=== PATIENT | female | born 1985 | race African-American/Black ===

== ENCOUNTER 2018-09-17 02:31 | Emergency (ER) | payer OTHER ==
[2018-09-17 03:48] VITALS: TEMP 98.1; BMI 36.4
--- NOTE | 2018-09-17 04:11 | PDOC ---
*Physical Exam - Vital Signs Last Vital Signs Temp Pulse Resp BP Pulse Ox 98.1 F 77 16 103/69 100 09/17/18 02:31 09/17/18 02:31 09/17/18 02:31 09/17/18 02:31 09/17/18 02:31 ED Treatment Course - LABORATORY CBC & Chemistry Diagram: 09/17/18 04:45 09/17/18 04:45 Medical Decision Making - Medical Decision Making 09/17/18 04:10 Patient seen by the advanced practice provider under my direct supervision. Ancillary testing reviewed as necessary. I agree with plan as outlined by the advanced practice provider. *DC/Admit/Observation/Transfer Diagnosis at time of Disposition: Vaginal bleeding - Discharge Dispostion Condition at time of disposition: Fair - Referrals Referrals: Live Cortes [Primary Care Provider] - - Patient Instructions - Post Discharge Activity
--- NOTE | 2018-09-17 04:23 | PDOC ---
History of Present Illness - General Chief Complaint: Vaginal Bleeding Stated Complaint: 14 WEEKS BLEEDING Time Seen by Provider: 09/17/18 04:08 History Source: Patient - History of Present Illness Initial Comments: 09/17/18 06:30 32-year-old female 14 weeks confirmed IUP complaining of vaginal bleeding last night when she woke up out of bed. Patient noted a large clot in the toilet. Denies cramping or pain. Patient reports that she has no urinary symptoms. systems engineering manager: Dr. Hall [facility] 0 Past History - Past Medical History Allergies/Adverse Reactions: Allergies Allergy/AdvReac Type Severity Reaction Status Date / Time No Known Allergies Allergy Verified 09/17/18 03:48 Home Medications: Ambulatory Orders NK [No Known Home Medication] 09/17/18 - Suicide/Smoking/Psychosocial Hx Smoking History: Never smoked Have you smoked in the past 12 months: No Information on smoking cessation initiated: No Hx Alcohol Use: No Drug/Substance Use Hx: No Review of Systems - Review of Systems Able to Perform ROS?: Yes Is the patient limited Mexican proficient: No Constitutional: No: Symptoms Reported, See HPI, Chills, Diaphoresis, Fever, Loss of Appetite, Malaise, Night Sweats, Weakness, Weight Stable, Unintentional Wgt. Loss, Unexplained wgt Loss, Other HEENTM: No: Symptoms Reported, See HPI, Eye Pain, Blurred Vision, Tearing, Recent change in vision, Double Vision, Cataracts, Ear Pain, Ocular Prothesis, Ear Discharge, Nose Pain, Nose Congestion, Tinnitus, Nose Bleeding, Hearing Loss , Throat Pain, Throat Swelling, Mouth Pain, Dental Problems, Difficulty Swallowing, Mouth Swelling, Other ABD/GI: Yes: Nausea : Yes: Other (Vaginal bleeding) *Physical Exam - Vital Signs Last Vital Signs Temp Pulse Resp BP Pulse Ox 98.1 F 77 16 103/69 100 09/17/18 02:31 09/17/18 02:31 09/17/18 02:31 09/17/18 02:31 09/17/18 02:31 - Physical Exam General Appearance: Yes: Appropriately Dressed Respiratory/Chest: positive: Lungs Clear, Normal Breath Sounds Female Pelvic Exam: positive: other (vaginal bleeding and clots in vault) Gastrointestinal/Abdominal: positive: Normal Bowel Sounds. negative: Tender ED Treatment Course - LABORATORY CBC & Chemistry Diagram: 09/17/18 04:45 09/17/18 04:45 Progress Note - Progress Note Progress Note: A: vaginal bleeding in P: cbc cmp TVUS beta hcg type & screen Medical Decision Making - Medical Decision Making 09/17/18 06:57 patient is pending TVUS, UA. patient reports minimal vaginal bleeding at this time. patient signed out to Eugenie SILVA 09/17/18 06:58 *DC/Admit/Observation/Transfer Diagnosis at time of Disposition: Vaginal bleeding, Placenta previa - Discharge Dispostion Disposition: HOME Condition at time of disposition: Improved - Referrals Referrals: Live Cortes [Primary Care Provider] - - Patient Instructions Printed Discharge Instructions: Placenta Previa Additional Instructions: You have a condition called placenta previa which is when part of the placenta covers the cervical opening. In a lot of women, this condition usually clears on its own, but you will need close follow-up with your [facility]. We spoke to Dr. Hall today who wants you to call her office today to make a sooner appointment next In the meantime, if symptoms worsen, please return to the ER - Post Discharge Activity
[2018-09-17 05:49] LABS: BASO % 0.2 % (0-2.0); EOS % 0.8 % (0-4.5); HEMATOCRIT 32.6 % (32.4-45.2); HEMOGLOBIN 11.3 GM/dL (10.7-15.3); LYMPH % 19.5 % (8-40); MCH 30.3 pg (25.7-33.7); MCHC 34.5 g/dl (32.0-36.0); MEAN CELL VOLUME 87.7 fl (80-96); MEAN PLT VOLUME 9.2 fl (7.5-11.1); MONO % 7.1 % (3.8-10.2); NEUT % 72.4 % (42.8-82.8); PLATELET COUNT 281 K/MM3 (134-434); RBC 3.72 M/mm3 (3.60-5.2); RDW 13.2 % (11.6-15.6); WHITE BLOOD COUNT 8.6 K/mm3 (4.0-10.0)
[2018-09-17 06:43] LABS: BLOOD UREA NITROGEN 14 mg/dL (7-18); CREATININE 0.5 mg/dL (0.55-1.3); GLUCOSE,RANDOM 83 mg/dL (74-106)
[2018-09-17 06:44] LABS: ALBUMIN 3.2 g/dl (3.4-5.0); ALK PHOS 64 U/L (45-117); ANION GAP 8 MMOL/L (8-16); BILIRUBIN,TOTAL 0.2 mg/dL (0.2-1); CALCIUM 9.1 mg/dL (8.5-10.1); CHLORIDE 103 mmol/L (98-107); CO2 24 mmol/L (21-32); POTASSIUM 4.1 mmol/L (3.5-5.1); SGOT/AST 15 U/L (15-37); SGPT/ALT 23 U/L (13-61); SODIUM 135 mmol/L (136-145); TOT PROT 7.2 g/dl (6.4-8.2)
--- NOTE | 2018-09-17 07:26 | PDOC ---
*Physical Exam - Vital Signs Last Vital Signs Temp Pulse Resp BP Pulse Ox 98.1 F 77 16 103/69 100 09/17/18 02:31 09/17/18 02:31 09/17/18 02:31 09/17/18 02:31 09/17/18 02:31 - Physical Exam General Appearance: Yes: Appropriately Dressed. No: Apparent Distress HEENT: positive: Normal Voice Neck: positive: Supple Respiratory/Chest: negative: Respiratory Distress Integumentary: positive: Dry, Warm Neurologic: positive: Fully Oriented, Alert, Normal Mood/Affect ED Treatment Course - LABORATORY CBC & Chemistry Diagram: 09/17/18 04:45 09/17/18 04:45 - ADDITIONAL ORDERS Additional order review: Laboratory Results 09/17/18 09/17/18 04:45 04:45 Sodium 135 L Potassium 4.1 Chloride 103 Carbon Dioxide 24 Anion Gap 8 BUN 14 Creatinine 0.5 L Creat Clearance w eGFR 141.24 Random Glucose 83 Calcium 9.1 Total Bilirubin 0.2 AST 15 ALT 23 Alkaline Phosphatase 64 Total Protein 7.2 Albumin 3.2 L Beta HCG, Quant 29616.9 Blood Type A POSITIVE Antibody Screen Negative 09/17/18 04:45 RBC 3.72 MCV 87.7 MCHC 34.5 RDW 13.2 MPV 9.2 Neutrophils % 72.4 Lymphocytes % 19.5 Monocytes % 7.1 Eosinophils % 0.8 Basophils % 0.2 Medical Decision Making - Medical Decision Making 09/17/18 07:25 Pt signed out to me at 7 AM Pt is a 32-year-old female, 3, P2, approximately 14 weeks , here with vaginal bleed, including clots. Has had documented IUP with Dr. Hall per prior team. Known to be Rh+. Stable here with eta >49K. UA and US pending 09/17/18 07:26 09/17/18 10:30 ~15 ww/ FHR on US. Inferior margin of placenta overlying internal Os. Normal jeremy cervix. Pt states she passed 1 large clot earlier and that vag bleed has since sig improved. Will contact pt's MACHINE ASSISTANT, Dr Hall 09/17/18 10:55 09/17/18 10:56 Dr Hall made aware of placenta previa on ultrasound. States patient can follow-up call office today to make a sooner appointment 09/17/18 10:56 *DC/Admit/Observation/Transfer Diagnosis at time of Disposition: Vaginal bleeding Placenta previa Qualifiers: Trimester: second trimester Qualified Code(s): O44.02 - Complete placenta previa NOS or without hemorrhage, second trimester - Discharge Dispostion Disposition: HOME Condition at time of disposition: Improved - Referrals Referrals: Live Cortes [Primary Care Provider] - - Patient Instructions Printed Discharge Instructions: Placenta Previa Additional Instructions: You have a condition called placenta previa which is when part of the placenta covers the cervical opening. In a lot of women, this condition usually clears on its own, but you will need close follow-up with your MACHINE ASSISTANT. We spoke to Dr. Hall today who wants you to call her office today to make a sooner appointment next In the meantime, if symptoms worsen, please return to the ER - Post Discharge Activity
[2018-09-17 08:21] LABS: EPI CELLS 0.6 /HPF (0-5/HPF); PH,URINE 5.5 (5.0-8.0); URINE APPEARANCE CLEAR; URINE BACTERIA 1.2 /hpf (NEGATIVE); URINE BILIRUBIN NEGATIVE (NEGATIVE); URINE CASTS 2 /lpf (0-8); URINE COLOR YELLOW; URINE GLUCOSE (UA) NEGATIVE (NEGATIVE); URINE KETONE NEGATIVE (NEGATIVE); URINE LEUK ESTERASE NEGATIVE (NEGATIVE); URINE NITRITE NEGATIVE (NEGATIVE); URINE PROTEIN NEGATIVE (NEGATIVE); URINE RBC 291 /hpf (0-4); URINE UROBILINOGEN 0.2 mg/dL (0.2-1.0); URINE WBC 2 /hpf (0-5)
[2018-09-17 11:54] VITALS: BP 110/65; PULSE 70
== END 2018-09-17 11:55 | disposition home or self-care (01) ==
LOC: JER 02:31
DX: O26.891 Other specified pregnancy related conditions, first trimester (principal); Z3A.14 14 weeks gestation of pregnancy; O44.01 Complete placenta previa NOS or without hemorrhage, first trimester
CPT/HCPCS: 36415; 76815; 76817-TC; 80053; 81003; 84702; 85025; 86850; 86900; 86901; 87086; 99282-25

== ENCOUNTER 2018-09-24 07:35 | Emergency (ER) | payer OTHER ==
[2018-09-24 07:51] VITALS: TEMP 97.7; BMI 36.7
[2018-09-24] MEDS ORDERED: ACETAMINOPHEN INJECTION 100 ML IVPB ONE (08:29)
[2018-09-24] MEDS ORDERED: SODIUM CHLORIDE 1,000 ML IV STA ×2 (08:34→10:34)
[2018-09-24] MEDS ORDERED: ACETAMINOPHEN 1000 MG/100 ML VIAL (NON FORMULARY) IVPB ONE (08:34)
--- NOTE | 2018-09-24 08:34 | PDOC ---
History of Present Illness - General History Source: Patient Exam Limitations: No Limitations - History of Present Illness Travel History: No Initial Comments: 09/24/18 08:06 33-year-old female with recent diagnosis of placenta previa last week 1 seen here for vaginal bleeding at 15 weeks. Patient states for the past 2 days has had abdominal pressure now has increased to every 3 minutes since last evening along with spotting since yesterday. Patient denies back pain, nausea but does complain of dizziness. Patient is followed by Dr. Hall who saw patient in the office for the same symptoms and had an ultrasound done which showed a single live intrauterine with a good heart rate as per patient. Patient also states had been told that her cervix was closed. Patient has no other complaints at this time including fever, chills or headache. Timing/Duration: reports: getting worse Quality: reports: moderate, cramping Abdominal Pain Onset Location: reports: suprapubic Pain Radiation: reports: no radiation Activities at Onset: reports: none Aggravating Factors: improves with: None Alleviating Factors: improves with: None <Veronica Jenkins - Last Filed: 09/24/18 13:11> <Alivia Hampton - Last Filed: 09/24/18 13:33> - General Chief Complaint: ,Possible Stated Complaint: 15 WKS PREG,PAIN Time Seen by Provider: 09/24/18 07:56 Past History - Travel Traveled outside of the country in the last 30 days: No Close contact w/someone who was outside of country & ill: No - Past Medical History COPD: No Kidney Stones: Yes (LITHOTRIPSY) - Surgical History Cholecystectomy: Yes - Reproductive History (#): 3 Para: 2 Polycystic Ovaries: No Therapeutic (s) & number: No Tubal Ligation: No - Immunization History Td Vaccination: Yes TDAP Vaccination: Yes Immunization Up to Date: Yes - Suicide/Smoking/Psychosocial Hx Smoking History: Never smoked Have you smoked in the past 12 months: No Hx Alcohol Use: No Drug/Substance Use Hx: No Patient Lives Alone: No Lives with/in: children <Veronica Jenkins - Last Filed: 09/24/18 13:11> <Alivia Hampton - Last Filed: 09/24/18 13:33> - Past Medical History Allergies/Adverse Reactions: Allergies Allergy/AdvReac Type Severity Reaction Status Date / Time No Known Allergies Allergy Verified 09/24/18 07:41 Home Medications: Ambulatory Orders Doxycycline Hyclate 100 mg PO BID #10 tablet 09/24/18 Methylergonovine Maleate [Methergine] 0.2 mg PO TID #9 tablet 09/24/18 Review of Systems - Review of Systems Able to Perform ROS?: No Is the patient limited Pashto proficient: No Constitutional: No: Symptoms Reported HEENTM: No: Symptoms Reported Respiratory: No: Symptoms reported Cardiac (ROS): No: Symptoms Reported ABD/GI: Yes: Abdominal cramping : Yes: Discharge (vag bleeding) Musculoskeletal: No: Symptoms Reported Integumentary: No: Symptoms Reported Neurological: No: Symptoms reported <Veronica Jenkins - Last Filed: 09/24/18 13:11> *Physical Exam - Vital Signs Last Vital Signs Temp Pulse Resp BP Pulse Ox 97.7 F 91 H 18 102/60 100 09/24/18 07:43 09/24/18 07:43 09/24/18 07:43 09/24/18 07:43 09/24/18 07:43 - Physical Exam General Appearance: Yes: Nourished, Appropriately Dressed HEENT: negative: Pale Conjunctivae Respiratory/Chest: positive: Lungs Clear, Normal Breath Sounds. negative: Respiratory Distress, Accessory Muscle Use Female Pelvic Exam: positive: cervical os closed, vaginal bleeding (dark red blood in vault in mod amt) Gastrointestinal/Abdominal: positive: Soft, Tenderness (midsuprapubic) Musculoskeletal: negative: Normal Inspection Integumentary: positive: Normal Color, Warm, Moist Neurologic: positive: Motor Strength 5/5 (ambulatory) <Veronica Jenkins - Last Filed: 09/24/18 13:11> - Vital Signs Last Vital Signs Temp Pulse Resp BP Pulse Ox 97.7 F 91 H 18 102/60 100 09/24/18 07:43 09/24/18 07:43 09/24/18 07:43 09/24/18 07:43 09/24/18 07:55 <Alivia Hampton - Last Filed: 09/24/18 13:33> ED Treatment Course - LABORATORY CBC & Chemistry Diagram: 09/24/18 08:10 09/24/18 08:10 - RADIOLOGY Radiology Studies Ordered: Category Date Time Status US(SINGLE) [US] Stat Ultrasound 09/24/18 07:57 Ordered <Veronica Jenkins - Last Filed: 09/24/18 13:11> - LABORATORY CBC & Chemistry Diagram: 09/24/18 08:10 09/24/18 08:10 - ADDITIONAL ORDERS Additional order review: Laboratory Results 09/24/18 09/24/18 08:35 08:10 PT with INR 13.00 INR 1.10 H Sodium 137 Potassium 3.6 Chloride 105 Carbon Dioxide 22 Anion Gap 10 BUN 7 Creatinine 0.6 Creat Clearance w eGFR 113.77 Random Glucose 111 H Calcium 9.0 Magnesium 1.5 L Total Bilirubin 0.4 AST 22 ALT 23 Alkaline Phosphatase 88 Total Protein 7.3 Albumin 3.1 L Lipase 216 09/24/18 08:10 RBC 3.69 MCV 87.2 MCHC 33.9 RDW 13.1 MPV 9.1 Neutrophils % 84.9 H Lymphocytes % 7.7 L D Monocytes % 6.8 Eosinophils % 0.3 Basophils % 0.3 - Medications Given in the ED: ED Medications Discontinued Medications Generic Name Dose Route Start Last Admin Trade Name Freq PRN Reason Stop Dose Admin Acetaminophen 1,000 mg 09/24/18 08:34 09/24/18 08:37 Ofirmev Injection - IVPB 09/24/18 08:35 1,000 mg ONCE ONE Administration Sodium Chloride 1,000 mls @ 1,000 mls/hr 09/24/18 08:34 09/24/18 08:37 Normal Saline - IV 09/24/18 09:33 1,000 mls/hr ASDIR STA Administration <Alivia Hampton - Last Filed: 09/24/18 13:33> Medical Decision Making - Medical Decision Making 09/24/18 08:42 CC: vag spotting and lower abd cramping since yesterday, recent dx of placenta previa Exam: Cervical OS closed, + vag bleeding, bp 102/60 Plan: labs, ivf, iv tylenol, urine, and u/s 09/24/18 10:48 Laboratory Tests 09/24/18 09/24/18 09/24/18 08:10 08:10 08:35 WBC 17.1 H RBC 3.69 Hgb 10.9 Hct 32.2 L Neutrophils % 84.9 H INR 1.10 H Sodium 137 Potassium 3.6 Carbon Dioxide 22 Anion Gap 10 BUN 7 Creatinine 0.6 Random Glucose 111 H Magnesium 1.5 L I was called to the room since pt was complaining of severe pressure to her vaginal area and watery discharge. Patient expelled a limp fetus and a moderate amount of blood and blood products. Noted attached umbilical cord still within the vaginal vault. Patient on stretcher with normal vital signs. Dilaudid 1 mg IV ordered for discomfort. Gentle uterine massage provided and blood pressure repeated within 15 minutes went to 99/60. Patient was given a second liter of IV fluid. Patient also with noted magnesium level of 1.5 and ordered 2 g IV. Case discussed the patient's EVENT SERVICES MANAGER doctor Rafael who was aware of incomplete miscarriage and is in route to the emergency room. Patient otherwise stable with moderate amount of blood/blood products noted. Patient comfortable after receiving Dilaudid. 09/24/18 11:29 Laboratory Tests 09/24/18 08:35 Blood Type A POSITIVE Antibody Screen Negative Patient was seen by a EVENT SERVICES MANAGER Dr. Hall who was able to remove the placenta without difficulty. Patient currently holding fetus BP 99/62 heart rate 74 , uncomfortable. Patient currently receiving magnesium and IV fluids. Patient will also be given a dose of IV doxycycline and IM methargen. I will update EVENT SERVICES MANAGER within the next hour to decide disposition 09/24/18 13:12 Pt reevaluated and had a large grape size clot on her sanitary napkin. Repeat blood pressure remains stable 99\68. hr 74. Patient otherwise comfortable and holding fetus presently. patient reevaluated also by Dr. Hall who feels patient may be discharged. Patient will be discharged home with Methergine and doxycycline and is to follow-up in the office either this upcoming Saturday or Saturday <Veronica Jenkins - Last Filed: 09/24/18 13:11> - Medical Decision Making The patient was seen and evaluated in conjunction with midlevel provider under my direct supervision, ancillary studies were reviewed. I agree with the plan as outlined ADRIA Jenkins. HPI, workup/dispo as outlined. VS reviewed, wnl. OB Dr Hall Approx 15 weeks by dates/US. Placenta previa on last visit and sono 09/17/18. ED visit at that time with VB, that resolved. labs, UA, repeat sono, analgesia, pelvic exam, reassess US with Live IUP in 2nd trimester but leg in cervix noted, likely SAB while in the ED 1020AM - passed POC, sent to patho lab getting abdominal massage given passage of products/spontaneous . call to Dr Hall came to evaluate, cord clamped, advised methergine and abx, pain control bleeding precautions. anticipate discharge with Dr Hall followup. 09/24/18 09:51 09/24/18 10:25 09/24/18 13:19 <Alivia Hampton - Last Filed: 09/24/18 13:33> *DC/Admit/Observation/Transfer <Corrina Jenkinsa - Last Filed: 09/24/18 13:11> <Alivia Hampton - Last Filed: 09/24/18 13:33> Diagnosis at time of Disposition: Miscarriage - Discharge Dispostion Disposition: HOME Condition at time of disposition: Improved - Prescriptions Prescriptions: Doxycycline Hyclate 100 mg PO BID #10 tablet Methylergonovine Maleate [Methergine] 0.2 mg PO TID #9 tablet - Referrals Referrals: Live Peck MD [Primary Care Provider] - Nettie Hall MD [Staff Physician] - - Patient Instructions Printed Discharge Instructions: Dealing With Miscarriage, DI for Miscarriage Additional Instructions: Please take doxycycline starting tonight since you were given your first dose here in the ER. Please also start the Methergine tonight and complete. Please follow-up with Dr. Hall either this upcoming Saturday or upcoming Saturday. Return to ED if you develop worsening abdominal pain, heavy vaginal bleeding, or weakness. - Post Discharge Activity
[2018-09-24 08:48] LABS: BASO % 0.3 % (0-2.0); EOS % 0.3 % (0-4.5); HEMATOCRIT 32.2 % (32.4-45.2); HEMOGLOBIN 10.9 GM/dL (10.7-15.3); LYMPH % 7.7 % (8-40); MCH 29.6 pg (25.7-33.7); MCHC 33.9 g/dl (32.0-36.0); MEAN CELL VOLUME 87.2 fl (80-96); MEAN PLT VOLUME 9.1 fl (7.5-11.1); MONO % 6.8 % (3.8-10.2); NEUT % 84.9 % (42.8-82.8); PLATELET COUNT 270 K/MM3 (134-434); RBC 3.69 M/mm3 (3.60-5.2); RDW 13.1 % (11.6-15.6); WHITE BLOOD COUNT 17.1 K/mm3 (4.0-10.0)
[2018-09-24 08:57] LABS: INR 1.1 (0.83-1.09)
[2018-09-24 09:07] LABS: ALBUMIN 3.1 g/dl (3.4-5.0); ALK PHOS 88 U/L (45-117); ANION GAP 10 MMOL/L (8-16); BILIRUBIN,TOTAL 0.4 mg/dL (0.2-1); BLOOD UREA NITROGEN 7 mg/dL (7-18); CHLORIDE 105 mmol/L (98-107); CO2 22 mmol/L (21-32); CREATININE 0.6 mg/dL (0.55-1.3); GLUCOSE,RANDOM 111 mg/dL (74-106); LIPASE 216 U/L (73-393); MAGNESIUM 1.5 mg/dL (1.8-2.4); POTASSIUM 3.6 mmol/L (3.5-5.1); SGOT/AST 22 U/L (15-37); SGPT/ALT 23 U/L (13-61); SODIUM 137 mmol/L (136-145); TOT PROT 7.3 g/dl (6.4-8.2)
[2018-09-24] MEDS ORDERED: HYDROmorphone HCl 2 MG/ML VIAL ONE (10:19)
[2018-09-24] MEDS ORDERED: HYDROmorphone HCL CARPU-JECT 2 MG/1 ML DISP.SYRIN IVPUSH ONE ×2 (10:33→10:35)
[2018-09-24] MEDS ORDERED: MAGNESIUM SULF 50% (8.12 MEQ/2 ML-1 GM VIAL) IVPB ONE (10:35)
[2018-09-24] MEDS ORDERED: MAGNESIUM 1GM/D5W - 2 GM/200 ML IVPB IVPB ONE (10:40)
[2018-09-24] MEDS ORDERED: DOXYCYCLINE INJECTION 100 MG in DEXTROSE 5%-WATER - 100 ML IVPB ONE (11:13)
[2018-09-24] MEDS ORDERED: METHYLERGONOVINE MALEATE 0.2 MG/1 ML AMP IM ONE (11:13)
--- NOTE | 2018-09-24 12:54 | PN ---
Progress Note (short form) - Note Progress Note: Patient seen at bedside, reports had abdominal cramping with mild spotting overnight. This AM pain became worse at around 0400 and decided to come to ED this AM. She reports worsening of pain after ultrasound and spontaneously delivery of severely premature fetus. Selected Entries 09/24/18 10:34 Pulse Rate [ 81 Apical] Blood Pressure 99/57 L [Right Arm] GEN - NAD, calm, adequate pain control ABD - soft, mild tenderness CASING IN LINE FEEDER- Cx 3 cm dilated, placenta palpated at cervical os, umbilical cord intact Cord clamped and cut. Fetus wrapped in blanket, given to patient. She pushed to deliver an intact placenta. No lacerations noted. EBL 400 CC. Will send to pathology. Plan for methergine Q8 x 2 days and Doxycycline BID x 5 days, will start first dose now Plan for observation of VS and bleeding now.
[2018-09-24 13:34] VITALS: BP 94/57; PULSE 70
--- NOTE | 2018-09-26 15:17 | PATH ---
Surgical Pathology Report Patient Name: JOSÉ MEIER [facility]. Rec. #: [id number] /Age/Gender: 1985 (Age: 33) / F Account: [id number] Location: EMERGENCY ROOM Taken: 09/24/2018 Received: 09/24/2018 Reported: 09/26/2018 Physicians: PHYSICIAN EMERGENCY DEPT Specimen(s) Received A: FETUS B: PLACENTA Clinical History Spontaneous , fetus at 15 weeks gestation Final Diagnosis A. FETUS: FETUS, 84 GRAMS, NO EXTERNAL ANOMALIES IDENTIFIED. GROSS EXAMINATION ONLY. B. PLACENTA: IMMATURE PLACENTA, 77 GRAMS, WITH ACUTE SUBCHORIONIC INFLAMMATION AND ACUTE DECIDUITIS. TRIVASCULAR CORD. Electronically Signed Jairo Samuels M.D. Gross Description A. Received fresh labeled with the patient's name and indicated on the requisition to be a fetus, is an 84 g intact fetus measuring 10.7 cm from crown to rump and 15 cm from crown to heel. Each foot measures 1.9 cm from heel to toe. The anus and nares are patent. The eyelids are fused shut. The upper and lower extremities are normal and well proportioned, without any bony defects. Each hand and foot displays 5 digits. There are no axial defects and the lumbosacral spine is intact. The external genitalia are well formed and possibly that of a female. No sections are submitted, gross only. B. Received fresh labeled with the patient's name and indicated on the requisition to be a placenta is a 77 g, 10.0 x 5.5 x 1.5 cm placenta with attached membranes and umbilical cord. The membranes are gregorio-pink and translucent with focal opacities. The membranes insert marginally. The attached umbilical cord measures 13 cm in length and averages 0.4 cm in diameter. The cord inserts at the margin. No true knots or stricture surgeon the side. Cut surface of the umbilical cord reveals 3 vessels. The surface is gregorio-pink with minimal fibrin deposition and appropriate caliber vessels. The maternal surface is gregorio-pink, markedly fragmented and disrupted. Sectioning reveals pale gregorio-pink parenchyma. No discrete lesions are identified. [employer] sections are submitted in 3 cassettes as follows: 1-membrane rolls and umbilical cord; 6-9-fbsw-thickness sections of placenta. /09/24/201809/24/2018
== END 2018-09-24 13:49 | disposition home or self-care (01) ==
LOC: JER 07:35
PROC: 3E03329 Introduction of Other Anti-infective into Peripheral Vein, Percutaneous Approach (ICD-10-PCS; principal; 2018-09-24)
PROC: 3E033NZ Introduction of Analgesics, Hypnotics, Sedatives into Peripheral Vein, Percutaneous Approach (ICD-10-PCS; 2018-09-24)
PROC: 3E033GC Introduction of Other Therapeutic Substance into Peripheral Vein, Percutaneous Approach (ICD-10-PCS; 2018-09-24)
PROC: 3E0337Z Introduction of Electrolytic and Water Balance Substance into Peripheral Vein, Percutaneous Approach (ICD-10-PCS; 2018-09-24)
PROC: 3E023GC Introduction of Other Therapeutic Substance into Muscle, Percutaneous Approach (ICD-10-PCS; 2018-09-24)
DX: O03.9 Complete or unspecified spontaneous abortion without complication (principal)
CPT/HCPCS: 36415; 76801-TC; 80053; 83690; 83735; 85025; 85610; 86850; 86900; 86901; 88300-TC; 88305-TC; 96361; 96365; 96372; 96375; 99283-25; J0131; J7030

== ENCOUNTER 2021-02-19 00:09 | Inpatient (IN) | payer OTHER ==
[2021-02-19] MEDS ORDERED: BUTORPHANOL TARTRATE 1 MG/ML VIAL IVPB ONE (00:30)
[2021-02-19] MEDS ORDERED: PROMETHAZINE HCL 25 MG/1 ML VIAL IVPB ONE (00:30)
[2021-02-19] MEDS: DEXTROSE 5%-LACTATED RINGERS 1,000 ML IV SCH ×3 (00:30→17:45)
[2021-02-19 01:35] LABS: BASO % 0.1 % (0-2.0); EOS % 0.8 % (0-4.5); HEMATOCRIT 30.4 % (32.4-45.2); HEMOGLOBIN 10.6 GM/dL (10.7-15.3); LYMPH % 13.4 % (8-40); MCH 30.8 pg (25.7-33.7); MCHC 34.7 g/dl (32.0-36.0); MEAN CELL VOLUME 88.6 fl (80-96); MEAN PLT VOLUME 8.6 fl (7.5-11.1); MONO % 7.9 % (3.8-10.2); NEUT % 77.8 % (42.8-82.8); PLATELET COUNT 243 10^3/uL (134-434); RBC 3.43 M/mm3 (3.60-5.2); RDW 13.6 % (11.6-15.6); WHITE BLOOD COUNT 10.4 K/mm3 (4.0-10.0)
[2021-02-19 01:45] LABS: INR 0.99 (0.83-1.09); PROTHROMBIN TIME (PATIENT) 12.2 SEC (9.7-13.0)
[2021-02-19 01:57] LABS: BLOOD UREA NITROGEN 5.9 mg/dL (7-18); CALCIUM 8.7 mg/dL (8.5-10.1)
[2021-02-19 02:01] LABS: CREATININE 0.5 mg/dL (0.55-1.3)
[2021-02-19 02:02] VITALS: BMI 41.3
[2021-02-19 02:52] LABS: HIV INTERPRETATION NEGATIVE (NEGATIVE)
[2021-02-19] MEDS ORDERED: OXYTOCIN 30 UNITS in 0.9% NS 30 UNIT/500 ML INFUS.BAG IVPB ONE (09:34)
[2021-02-19] MEDS ORDERED: OXYTOCIN 30 UNITS in 0.9% NS 30 UNIT/500 ML INFUS.BAG IVPB SCH (09:45)
[2021-02-19] MEDS ORDERED: AMPICILLIN - 2 GM in SODIUM CHLORIDE 100 ML IVPB SCH (10:30)
[2021-02-19] MEDS ORDERED: AMPICILLIN SODIUM 2 GM VIAL ONE (10:31)
[2021-02-19] MEDS ORDERED: AMPICILLIN SODIUM 1 GM VIAL ONE ×3 (14:03→22:24)
[2021-02-19] MEDS: AMPICILLIN - 1 GM in SODIUM CHLORIDE 100 ML IVPB SCH ×3 (14:07→22:30)
[2021-02-19] MEDS ORDERED: PROMETHAZINE HCL 25 MG/1 ML VIAL ONE (21:01)
[2021-02-19] MEDS ORDERED: BUTORPHANOL TARTRATE 2 MG/ML VIAL ONE (21:01)
[2021-02-19] MEDS ORDERED: ELECTROLYTE-148 SOLN 1,000 ML IV SCH (23:45)
[2021-02-20] MEDS ORDERED: FENTANYL/BUPIVACAINE/NS/PF - PCEA - 50 ML DISP.SYRIN EP ONE (00:23)
[2021-02-20] MEDS ORDERED: PCA PUMP NR ONE ×2 (00:24→04:13)
[2021-02-20] MEDS ORDERED: BUPIVACAINE HCL/PF 0.25% (2.5MG/ML) 10 ML VIAL ONE (00:42)
[2021-02-20] MEDS ORDERED: NALOXONE HCL 0.4 MG/ML VIAL IVPUSH PRN (01:06)
[2021-02-20] MEDS ORDERED: AMPICILLIN SODIUM 1 GM VIAL ONE (02:25)
[2021-02-20] MEDS: AMPICILLIN - 1 GM in SODIUM CHLORIDE 100 ML IVPB SCH (02:28)
[2021-02-20] MEDS ORDERED: OXYTOCIN 20 UNITS in 0.9% NS 20 UNIT/1,000 ML INFUS.BAG IV ONE ×3 (02:51→04:54)
[2021-02-20] MEDS ORDERED: BENZOCAINE 20% 57 GM BOTTLE TP PRN (03:24)
[2021-02-20] MEDS ORDERED: WITCH HAZEL 50% (TUCKS) 40 PAD/JAR PAD TP PRN (03:24)
[2021-02-20] MEDS ORDERED: BISACODYL 10 MG SUPP.RECT RC PRN (03:24)
[2021-02-20] MEDS ORDERED: IBUPROFEN 600 MG TABLET (FP) PO PRN (03:24)
[2021-02-20] MEDS ORDERED: ACETAMINOPHEN 325 MG TABLET (FP) PO PRN (03:24)
[2021-02-20] MEDS ORDERED: METHYLERGONOVINE MALEATE 0.2 MG/1 ML AMP IM PRN (03:24)
[2021-02-20] MEDS ORDERED: BENZOCAINE 28 GM HEMORRHOIDAL OINTMENT TP PRN (03:24)
[2021-02-20] MEDS ORDERED: METHYLERGONOVINE MALEATE 0.2 MG/1 ML AMP IM ONE (03:25)
[2021-02-20] MEDS ORDERED: OXYTOCIN 20 UNITS in 0.9% NS 20 UNIT/1,000 ML INFUS.BAG IV SCH (03:30)
[2021-02-20 04:47] LABS: CORD BASE EXCESS -3.6 mmol/L (0-2); CORD HCO3 27.3 mmHg (20-29); CORD PCO2 76.7 mmHg (30-78); CORD pH 7.169 (7.14-7.44)
[2021-02-20 04:50] LABS: CORD BASE EXCESS -4.3 mmol/L (0-2); CORD HCO3 20.3 mmHg (20-29); CORD PCO2 36.1 mmHg (30-78); CORD pH 7.368 (7.14-7.44)
[2021-02-20] MEDS: FERROUS SO4 325 MG TABLET (FP) PO SCH ×2 (08:42→17:44)
[2021-02-20] MEDS: PRENATAL VITAMINS W/ FOLIC ACID TABLET (FP) PO SCH (09:30)
[2021-02-20 10:31] LABS: POC NITRAZINE POS
[2021-02-21] MEDS: FENTANYL/BUPIVACAINE/NS/PF - PCEA - 50 ML DISP.SYRIN EP SCH (07:09)
[2021-02-21 08:52] LABS: BASO % 0.2 % (0-2.0); EOS % 1.4 % (0-4.5); HEMATOCRIT 34.5 % (32.4-45.2); HEMOGLOBIN 11.7 GM/dL (10.7-15.3); LYMPH % 14.3 % (8-40); MCH 30.8 pg (25.7-33.7); MEAN CELL VOLUME 90.7 fl (80-96); MEAN PLT VOLUME 8.7 fl (7.5-11.1); MONO % 7.5 % (3.8-10.2); NEUT % 76.6 % (42.8-82.8); PLATELET COUNT 246 10^3/uL (134-434); RDW 13.8 % (11.6-15.6); WHITE BLOOD COUNT 10.6 K/mm3 (4.0-10.0)
[2021-02-21] MEDS: PRENATAL VITAMINS W/ FOLIC ACID TABLET (FP) PO SCH (10:34)
[2021-02-21] MEDS: FERROUS SO4 325 MG TABLET (FP) PO SCH ×2 (10:35→17:43)
[2021-02-21] MEDS ORDERED: SENNOSIDES/DOCUSATE COMBO (SENNA PLUS) TABLET (UD) PO PRN (22:00)
[2021-02-22 09:45] VITALS: BP 120/83; PULSE 69; TEMP 97.4
[2021-02-22] MEDS: FERROUS SO4 325 MG TABLET (FP) PO SCH (09:50)
[2021-02-22] MEDS: PRENATAL VITAMINS W/ FOLIC ACID TABLET (FP) PO SCH (09:50)
== END 2021-02-22 11:00 | disposition home or self-care (01) | DRG 560 ==
LOC: JLDR 00:09 → J3W 02-20 05:34
PROVIDERS: ADMIT Obstetrics & Gynecology; ATTEND Obstetrics & Gynecology
PROC: 0HQ9XZZ Repair Perineum Skin, External Approach (ICD-10-PCS; principal; 2021-02-20)
PROC: 10E0XZZ Delivery of Products of Conception, External Approach (ICD-10-PCS; 2021-02-20)
DX: O42.013 Preterm premature rupture of membranes, onset of labor within 24 hours of rupture, third trimester (principal); O70.0 First degree perineal laceration during delivery; Z3A.37 37 weeks gestation of pregnancy; Z37.0 Single live birth
CPT/HCPCS: 36415; 36600; 59409; 76819-TC; 80048; 82803; 83986-QW; 85025; 85610; 85730; 86780; 86850; 86900; 86901; 87389; C9803; U0003; U0005